=== PATIENT | female | born 1960 | race Caucasian/White ===

== ENCOUNTER → 2021-04-22 | Outpatient (CLI) | payer OTHER ==
--- NOTE | 2021-04-22 08:08 | BD ---
EXAMINATION TYPE: Axial Bone Density DATE OF EXAM: 04/22/2021 COMPARISON: NONE CLINICAL HISTORY: Postmenopausal female Height: 62 IN Weight: 139 LBS FRAX RISK QUESTIONS: Current Tobacco Use: YES RISK FACTORS HISTORY OF: Active: YES Postmenopausal woman: AGE 52 Take estrogen and/or progesterone medications: NOT NOW How long: TOOK CONTROL FOR 3 YEARS MEDICATIONS: Additional Medications: CALCIUM, VIT D, ZOLOFT, XANAX EXAM MEASUREMENTS: Bone mineral densitometry was performed using the [employer] System. PT STATES CANNOT TAKE OUT NAVEL RING Bone mineral density as measured about the Lumbar spine is: ----- L1-L4(G/cm2): 1.201 T Score Values are as follows: ----- L2: 0.0 ----- L3: 0.4 ----- L4: 0.4 ----- L1-L4: 0.2 Bone mineral density BASELINE Bone mineral density about the R hip (g/cm2): 0.897 Bone mineral density about the L hip (g/cm2): 0.930 T Score values are as follows: -----R Neck: -1.0 -----L Neck: -0.8 -----R Total: -0.5 -----L Total: -0.1 Bone mineral density BASELINE IMPRESSION: Normal (Values between +1 and -1 indicate normal bone mass). Consider repeating this study in 5 year s or sooner if there is some new clinical indication. NOTE: T-SCORE=SD OF THE YOUNG ADULT MEAN.
[2021-04-22 08:12] LABS: Basophils % (A) 1 %; Eosinophils # (A) 0.2 k/uL (0-0.7); Eosinophils % (A) 2 %; HGB 14.4 gm/dL (11.4-16.0); Lymphocytes # (A) 2.1 k/uL (1.0-4.8); Lymphocytes % (A) 35 %; MCH 30.9 pg (25.0-35.0); MCHC 32.1 g/dL (31.0-37.0); MCV 96.3 fL (80.0-100.0); Mean Platelet Volume 7.4; Monocytes # (A) 0.5 k/uL (0-1.0); Monocytes % (A) 8 %; Neutrophils # (A) 3.2 k/uL (1.3-7.7); Neutrophils % (A) 52 %; Platelet Count 304 k/uL (150-450); RBC 4.67 m/uL (3.80-5.40); RDW 12.7 % (11.5-15.5); WBC 6.1 k/uL (3.8-10.6)
[2021-04-22 08:38] LABS: ALT 17 U/L (4-34); AST 22 U/L (14-36); African American GFR (CKD) >90 (>60 ml/min/1.73 sqM); Albumin 4.2 g/dL (3.5-5.0); Albumin/Globulin Ratio 1.6; Alkaline Phosphatase 60 U/L (38-126); Anion Gap 6 mmol/L; Blood Urea Nitrogen 15 mg/dL (7-17); Calcium 9.4 mg/dL (8.4-10.2); Carbon Dioxide 26 mmol/L (22-30); Chloride 106 mmol/L (98-107); Globulin 2.7 g/dL; Glucose 77 mg/dL (74-99); Non-African American GFR(CKD) >90 (>60 ml/min/1.73 sqM); Potassium 4.6 mmol/L (3.5-5.1); Sodium 138 mmol/L (137-145); Total Bilirubin 0.4 mg/dL (0.2-1.3); Total Protein 6.9 g/dL (6.3-8.2)
--- NOTE | 2021-04-22 08:40 | CTL ---
EXAMINATION TYPE: CT Low Dose Lung DATE OF EXAM ORDERED: 04/22/2021 HISTORY: Long-term tobacco use. Lung cancer screening CT DLP: [address] CTDI: 1.64 mGy Automated exposure control for dose reduction was used. SCREENING VISIT: Baseline COMPARISON: None TECHNIQUE: Low dose computed tomography scan was performed through the chest at 1 mm thick sections a nd reconstructed images in multiple planes at 1 mm and [address] DIAGNOSTIC QUALITY: Satisfactory FINDINGS: LUNG NODULES: None. LUNGS: COPD: Severity: Mild Fibrosis: Severity: None Lymph nodes: No greater than 1 cm Other findings: None RIGHT PLEURAL SPACE: Effusion: None Calcification: None Thickening: None Pneumothorax: None LEFT PLEURAL SPACE: Effusion: None Calcification: None Thickening: None Pneumothorax: None HEART: Heart Size: Normal Coronary calcification: None Pericardial effusion: Trace OTHER FINDINGS: Upper abdomen: None. Bony thorax: Mild to moderate spurring. Supraclavicular region: None. Other: None IMPRESSION: No suspicious nodules CT LUNG RAD AND CT CHEST RECOMMENDATION: Lung-Rad 1 Negative: Continue annual screening with LDCT in 12 months. S Modifier (other clinically significant findings): None
[2021-04-23 08:56] LABS: Chol/HDL Ratio 4.17 Ratio; LDL Cholesterol,Calculated 130.9 mg/dL (0.0-131.0)
--- NOTE | 2021-04-23 13:35 | MM ---
Reason for exam: screening (asymptomatic). History: Patient is postmenopausal. Family history of breast cancer in paternal cousin, breast cancer in paternal aunt, and breast cancer in paternal grandmother. Physical Findings: A clinical breast exam by your physician is recommended on an annual basis and results should be correlated with mammographic findings. MG Screening Mammo w CAD Bilateral CC and MLO view(s) were taken. No prior studies available for comparison. There are scattered fibroglandular densities. There is no discrete abnormality. ASSESSMENT: Negative, BI-RAD 1 RECOMMENDATION: Routine screening mammogram of both breasts in 1 year.
== END | disposition home or self-care (01) ==
LOC: RADMAMWWP 06:59
PROVIDERS: ATTEND Family Medicine
DX: Z12.2 Encounter for screening for malignant neoplasm of respiratory organs (principal); Z72.0 Tobacco use; Z12.31 Encounter for screening mammogram for malignant neoplasm of breast; Z80.3 Family history of malignant neoplasm of breast; Z78.0 Asymptomatic menopausal state
CPT/HCPCS: 71271; 77067; 77080; 80053; 80061; 83036; 84443; 85025

== ENCOUNTER → 2022-04-20 | Outpatient (CLI) | payer OTHER | END | disposition home or self-care (01) | LOC: LABWHC1 09:41 | PROVIDERS: ATTEND Family Medicine | DX: Z51.81 Encounter for therapeutic drug level monitoring (principal); Z79.890 Hormone replacement therapy | CPT/HCPCS: 36415; 84403 ==

== ENCOUNTER → 2022-10-16 | Outpatient (CLI) | payer OTHER | END | disposition home or self-care (01) | LOC: LABWHC1 13:05 | PROVIDERS: ATTEND Family Medicine | DX: I10 Essential (primary) hypertension (principal) | CPT/HCPCS: 36415; 83036; 84443 ==